=== PATIENT | male | born 1975 | race Two or more races ===

== ENCOUNTER 2024-05-28 11:35 | Day surgery (SDC) | payer BC, SELFPAY ==
[2024-05-28] VITALS (13 sets, daily range): BP systolic 109–158; BP diastolic 78–111; PULSE 85–96; RESP 10–23; TEMP 36.4–36.6; O2SAT 95–100; BMI 38.2
[2024-05-28] MEDS: DiphenhydrAMINE INJ 50 MG/ML VIAL 25 MG IV (13:51)
[2024-05-28] MEDS: fentaNYL CIT INJ 50 mCg/ML AMP 2ML (ASD USE ONLY) IV (13:53)
[2024-05-28] MEDS: MIDAZOLAM INJ 1 MG/ML VIAL 2 ML (ASD USE ONLY) 2 MG IV (14:07)
[2024-05-28] MEDS: MEPERIDINE INJ 25 MG/ML VIAL (ASD USE ONLY) IV (14:07)
[2024-05-28] MEDS: ONDANSETRON INJ 2 MG/ML INJ 2 ML 4 MG IV (14:16)
== END 2024-05-28 15:05 | disposition home or self-care (01) ==
PROVIDERS: PCP Internal Medicine; Referring Provider Specialist; Visit Provider Specialist
PROC: 0DBE8ZX Excision of Large Intestine, Via Natural or Artificial Opening Endoscopic, Diagnostic (ICD-10-PCS; CPT 45380; principal; 2024-05-28 12:30)
PROC: (CPT 43239; 2024-05-28 12:30)
DX: D12.5 Benign neoplasm of sigmoid colon (principal); K64.9 Unspecified hemorrhoids; K21.00 Gastro-esophageal reflux disease with esophagitis, without bleeding; K29.70 Gastritis, unspecified, without bleeding; K22.10 Ulcer of esophagus without bleeding
CPT/HCPCS: 45385; 43239; A4649; J1200; J2175; J2250; J2405; J3010